=== PATIENT | female | born 2000 | race Caucasian/White ===

== ENCOUNTER 2018-12-09 07:31 | Emergency (ER) | payer OTHER ==
[2018-12-09 07:46] VITALS: BP 139/70; PULSE 93; TEMP 98; BMI 27.4
[2018-12-09] MEDS ORDERED: predniSONE 20 MG TABLET (UD) PO ONE (08:19)
[2018-12-09] MEDS ORDERED: predniSONE 20 MG TABLET (UD) ONE (08:22)
[2018-12-09] MEDS ORDERED: predniSONE 10 MG TABLET (UD) ONE (08:22)
[2018-12-09] MEDS ORDERED: ALBUTEROL SO4 2.5/IPRATROPIUM 0.5 INH SOL 3 ML VIAL.NEB. NEB ONE (08:22)
[2018-12-09] MEDS: ALBUTEROL SO4 2.5/IPRATROPIUM 0.5 INH SOL 3 ML VIAL.NEB. NEB SCH ×3 (08:23→09:00)
--- NOTE | 2018-12-09 09:14 | PDOC ---
History of Present Illness - General Chief Complaint: Asthma Stated Complaint: WHEEZING Time Seen by Provider: 12/09/18 08:09 History Source: Patient Exam Limitations: No Limitations - History of Present Illness Initial Comments: 12/09/18 09:10 Healthy 18-year-old female with history of mild intermittent asthma, never intubated or admitted and only occasionally using albuterol pump, first ED visit in several years presents now with 1-2 days of wheezing. Patient was outside working on her car in the cold weather, also had 2-3 days of nasal congestion/URI and feels those were her triggers. No fevers or chills, no cough , no lung pain. No PE risk factors, no history of recurring pneumonia. Nonsmoker Past History - Past Medical History Allergies/Adverse Reactions: Allergies Allergy/AdvReac Type Severity Reaction Status Date / Time dog dander Allergy Verified 12/09/18 07:40 Home Medications: Ambulatory Orders Albuterol Sulfate Inhaler - [Ventolin Hfa Inhaler -] 1 - 2 inh PO Q4H #1 inhaler 12/09/18 Prednisone [Prednisone 50 MG TABLETS] 50 mg PO DAILY #5 tablet 12/09/18 COPD: No - Suicide/Smoking/Psychosocial Hx Smoking History: Never smoked Hx Alcohol Use: No Drug/Substance Use Hx: No Review of Systems - Review of Systems Constitutional: No: Chills, Fever Respiratory: Yes: Wheezing. No: Cough Cardiac (ROS): No: Chest Pain, Edema ABD/GI: No: Nausea, Vomiting All Other Systems: Reviewed and Negative *Physical Exam - Vital Signs Last Vital Signs Temp Pulse Resp BP Pulse Ox 98 F 93 H 20 139/70 100 12/09/18 07:34 12/09/18 07:34 12/09/18 07:34 12/09/18 07:34 12/09/18 07:57 - Physical Exam Comments: 12/09/18 09:11 Vital signs are normal, slight tachypnea Seated comfortably in stretcher speaking full sentences GENERAL: The patient is awake, alert, and fully oriented, in no acute distress. HEAD: Normal with no signs of trauma. EYES: PERRL, EOMI. ENT: oropharynx clear. Moist mucous membranes. NECK: Normal range of motion, supple without lymphadenopathy. LUNGS: Breath sounds symmetric, b/l diffuse inspiratory/expiratory wheezing without focally decreased breath sounds or prolonged expiration. HEART: Regular rate slight tachy EXTREMITIES: Normal range of motion, no edema. 2+ distal pulses. NEUROLOGICAL: Cranial nerves II through XII grossly intact. Normal speech, normal gait. PSYCH: Normal mood, normal affect. SKIN: Warm, Dry, no rashes or lesions noted. Moderate Sedation - Procedure Monitoring Vital Signs: Procedure Monitoring Vital Signs Temperature 98 F 12/09/18 07:34 Pulse Rate 93 H 12/09/18 07:34 Respiratory Rate 20 12/09/18 07:34 Blood Pressure 139/70 12/09/18 07:34 O2 Sat by Pulse Oximetry (%) 100 12/09/18 07:57 ED Treatment Course - Medications Given in the ED: ED Medications Discontinued Medications Generic Name Dose Route Start Last Admin Trade Name Freq PRN Reason Stop Dose Admin Albuterol/Ipratropium 1 amp 12/09/18 08:30 12/09/18 09:00 Duoneb - NEB 12/09/18 09:01 1 amp Q15M SHERRY Administration Prednisone 50 mg 12/09/18 08:19 12/09/18 08:23 Deltasone - PO 12/09/18 08:20 50 mg ONCE ONE Administration Medical Decision Making - Medical Decision Making 12/09/18 09:13 Healthy 18-year-old female with mild intermittent asthma presents with mild to moderate exacerbation, likely secondary to viral URI and/or cold weather. Vital signs are normal and not in acute respiratory distress. Nebulizers, oral steroids Feels markedly improved, o2 sat remains 100% room air. ambulating comfortably. agrees with d/c plan, understands return criteria. *DC/Admit/Observation/Transfer Diagnosis at time of Disposition: Acute asthma exacerbation Qualifiers: Asthma severity: mild Asthma persistence: intermittent Qualified Code(s): J45.21 - Mild intermittent asthma with (acute) exacerbation - Discharge Dispostion Disposition: HOME Condition at time of disposition: Improved - Prescriptions Prescriptions: Albuterol Sulfate Inhaler - [Ventolin Hfa Inhaler -] 1 - 2 inh PO Q4H #1 inhaler Prednisone [Prednisone 50 MG TABLETS] 50 mg PO DAILY #5 tablet - Referrals - Patient Instructions Printed Discharge Instructions: DI for Asthma -- Adult Additional Instructions: Activity as tolerated. Stay hydrated. Use albuterol pump every 4 hours as prescribed as needed for wheezing, take prednisone as prescribed for 5 more days. Continue any medications as previously prescribed by your physician. You should follow up with your primary doctor as soon as possible regarding today's emergency department visit. Return to the emergency department for any new or concerning symptoms, particularly persistent or worsening wheezing, shortness of breath or chest pain , fever/chills. - Post Discharge Activity
== END 2018-12-09 09:40 | disposition home or self-care (01) ==
LOC: JER 07:31
PROC: 3E0F7GC Introduction of Other Therapeutic Substance into Respiratory Tract, Via Natural or Artificial Opening (ICD-10-PCS; principal; 2018-12-09)
DX: J45.20 Mild intermittent asthma, uncomplicated (principal)
CPT/HCPCS: 94640; 99281-25

== ENCOUNTER 2020-08-24 14:41 | Emergency (ER) | payer OTHER | END 2020-08-24 15:18 | disposition home or self-care (01) | LOC: JVIRT 14:41 | DX: Z11.59 Encounter for screening for other viral diseases (principal) | CPT/HCPCS: C9803; Q3014-GT; U0003 ==

== ENCOUNTER 2020-09-21 13:40 | Emergency (ER) | payer OTHER | END 2020-09-21 13:52 | disposition home or self-care (01) | LOC: JVIRT 13:40 | DX: Z11.59 Encounter for screening for other viral diseases (principal) | CPT/HCPCS: C9803; Q3014-GT; U0003 ==